=== PATIENT | male | born 1950 | race Caucasian/White ===

== ENCOUNTER 2017-09-06 13:29 | Emergency (ER) | payer MEDICARE, MEDICAID ==
--- NOTE | 2017-09-06 14:42 | ED Physician Chart ---
ED Chief Complaint/HPI - Patient Information Date Seen:: 09/06/17 Time Seen:: 14:20 Chief Complaint:: lower legs red and swollen History of Present Illness:: Both lower legs have been red and swollen for last 2-3 days. She denies fever. She had a right groin which burst yesterday. Allergies:: Allergies Allergy/AdvReac Type Severity Reaction Status Date / Time Penicillins Allergy Verified 09/06/17 14:13 sulfamethoxazole Allergy Verified 09/06/17 14:13 [From Bactrim] trimethoprim [From Bactrim] Allergy Verified 09/06/17 14:13 Historian:: Patient Review:: Nurse's Note Reviewed ED Review of Systems - Review of Systems General/Constitutional: No fever, No chills Skin: Skin lesions Head: No headache Eyes: No loss of vision ENT: No earache Neck: No neck pain, No swelling Cardio Vascular: No chest pain, No palpitations Pulmonary: No SOB GI: No nausea, No vomiting, No diarrhea G/U: No dysuria, No hematuria Musculoskeletal: No bone or joint pain Psychiatric: No prior psych history Hematopoietic: No bruising Allergic/Immuno: No urticaria Neurological: No syncope ED Past Medical History - Past Medical History Past Medical History: HTN, DM Family History: Diabetes Melitus, Other (cancer) Social History: Non Smoker, No Alcohol Surgical History: Appendectomy, Cholecystectomy, Hysterectomy, other (left nephrectomy for stage III renal cell carcinoma) Psychiatricy History: None Medication: Reviewed ED Physical Exam - Physical Examination General/Constitutional: Awake Head: Atraumatic Eyes: Lids, conjuctiva normal, PERRL Skin: Nl inspection, No rash, No skin lesions, No ecchymosis ENMT: External ears, nose nl, TM canals nl, Nasal exam nl, Lips, teeth, gums nl Neck: No nuchal rigidity Respiratory: Nl effort/Exclusion, Clear to Auscultation, No Wheeze/Rhonchi/Rales Cardio Vascular: RRR, No murmur, gallop, rubs GI: No tenderness/rebounding/guarding, No organomegaly Other comments:: 2 cm area of redness and induration right groin: Probably a spontaneously ruptured abscess Extremities: Normal digits & nails Other Extremities comments:: 2 out of 4 redness and 2 out of 4 pretibial pitting edema both lower legs Neuro/Psych: No focal deficits Misc: No paraspinal tenderness ED Labs/Radiology/EKG Results - Lab Results Results: Laboratory Results - last 24 hr 09/06/17 09/06/17 14:44 14:44 WBC 10.0 RBC 4.40 Hgb 13.9 Hct 40.7 L MCV 92.6 MCH 31.6 H MCHC Differential 34.2 RDW 12.1 Plt Count 246 MPV 7.4 Neutrophils % 66.7 Lymphocytes % 26.7 Monocytes % 5.9 Eosinophils % 0.7 Basophils % 0.0 D-Dimer 501 H Sodium 136 Potassium 4.3 Chloride 105 Carbon Dioxide 23.8 Anion Gap 11.5 BUN 14 Creatinine 0.9 Est GFR ( Amer) > 60.0 Est GFR (Non-Af Amer) > 60.0 BUN/Creatinine Ratio 15.6 Glucose 354 H Calcium 8.8 Total Bilirubin 0.5 AST 23 ALT 37 Alkaline Phosphatase 142 H Total Protein 6.3 Albumin 3.5 L Globulin 2.8 Albumin/Globulin Ratio 1.3 - Radiology Results Results: Lower extremity venous Doppler negative for deep vein thrombosis; pelvic ultrasound also negative ED Septic Shock - . Is Septic Shock (SBP<90, OR Lactate>4 mmol\L) present?: No ED Reassessment (Disposition) - Reassessment Reassessment Condition:: Unchanged - Diagnosis Diagnosis:: Stasis dermatitis lower extremities; spontaneously drained abscess probably MRSA right groin - Aftercare/Follow up Instructions Aftercare/Follow-Up Instructions:: Refer to Discharge Instructions - Patient Disposition Discharge/Transfer:: Home Condition at Disposition:: Stable, Unchanged
[2017-09-06 14:53] LABS: % EOSINOPHILS 0.7 % (0.0-5.0); % LYMPHOCYTES 26.7 % (20.0-50.0); % MONOCYTES 5.9 % (2.0-10.0); % NEUTROPHILS 66.7 % (40.0-80.0); EOSINOPHILE ABSOLUTE 0.1 Th/cmm (0.1-0.4); HEMATOCRIT 40.7 % (41.0-60); HEMOGLOBIN 13.9 gm/dL (12-16); LYMPHOCYTE ABSOLUTE 2.7 Th/cmm (1.5-3.0); MEAN CELL VOLUME 92.6 fl (80-99); MEAN CORPUSCULAR HEMOGLOBIN 31.6 pg (27.0-31.0); MEAN CORPUSCULAR HGB CONC 34.2 pg (28.0-36.0); MEAN PLATELET VOLUME 7.4 fl; MONOCYTE ABSOLUTE 0.6 Th/cmm (0.3-1.0); NEUTROPHILE ABSOLUTE 6.6 Th/cmm (1.8-8.0); PLATELET COUNT 246 Th/cmm (150-400); RED CELL DISTRIBUTION WIDTH 12.1 % (11.5-20.0)
[2017-09-06 15:13] LABS: ALB/GLOB RATIO 1.3 (1.0-1.8); ALBUMIN 3.5 gm/dL (4.2-5.5); ALKALINE PHOSPHATASE 142 U/L (34-104); ANION GAP 11.5 (7.0-16.0); BILIRUBIN,TOTAL 0.5 mg/dL (0.3-1.0); BUN - UREA NITROGEN 14 mg/dL (7-25); CALCIUM SERUM 8.8 mg/dL (8.6-10.3); CARBON DIOXIDE 23.8 mEq/L (21.0-31.0); CHLORIDE 105 mEq/L (98-107); CREATININE - SERUM 0.9 mg/dL (0.7-1.3); GFR AFRICAN-AMERICAN > 60.0 ml/min (>90); GFR NON AFRICAN-AMERICAN > 60.0 ml/min; GLUCOSE 354 mg/dL (70-105); POTASSIUM SERUM 4.3 mEq/L (3.5-5.1); SGOT 23 U/L (13-39); SGPT/ALT 37 U/L (7-52); SODIUM SERUM 136 mEq/L (136-145); TOTAL PROTEIN,SERUM 6.3 gm/dL (6.0-8.3)
[2017-09-06 15:21] LABS: DDIMER QUANT 501 ng/mL (100-400)
[2017-09-06 21:51] LABS: A1C % 13.7 % (4.0-6.0)
--- NOTE | 2017-09-07 08:51 | Diagnostic Imaging Report ---
Bilateral lower extremity DVT study HISTORY: Swelling COMPARISON: None Technique: Longitudinal and transverse sonographic images of the bilateral lower extremity veins were obtained with doppler analysis. FINDINGS: There is normal compressibility, augmentation and phasicity of the bilateral common femoral, superficial femoral, popliteal, and posterior tibial veins. No thrombus is visualized. IMPRESSION: No evidence of thrombus within the bilateral lower extremity veins.
--- NOTE | 2017-09-07 08:53 | Diagnostic Imaging Report ---
Ultrasound pelvis HISTORY: Pelvic mass. Palpable lump along the pubic bone. Patient is postmenopausal. Patient reports previous hysterectomy. COMPARISON: None Technique: Longitudinal and transverse sonographic sector images of the pelvis were obtained transabdominally. Findings: The patient is status post hysterectomy. The Ovaries were also not visualized. No fluid collection or other mass lesions identified. IMPRESSION: Status post hysterectomy. No fluid collections or other mass lesions identified. Please correlate with clinical findings. Given clinical history, consider further assessment with CT examination.
== END 2017-09-06 19:15 | disposition home or self-care (01) ==
LOC: ER 13:29
DX: I87.2 Venous insufficiency (chronic) (peripheral) (principal); I10 Essential (primary) hypertension; E11.9 Type 2 diabetes mellitus without complications
CPT/HCPCS: 36415-UA; 76856-TC; 80053-TC; 83036-90; 85025-TC; 85379-TC; 93970-TC-50; Z7610